=== PATIENT | female | born 1960 | race Caucasian/White ===

== ENCOUNTER 2023-10-31 10:40 | Emergency (ER) | payer OTHER ==
[~2023-10-31] VITALS: Ht 157.5 cm; Wt 72.6 kg
[2023-10-31 10:53] VITALS: BP 126/102; PULSE 99; RESP 18; TEMP 97.9; O2SAT 95
[2023-10-31] MEDS: KETOROLAC 30 MG/ML VIAL IM ONE (11:38)
[2023-10-31] MEDS ORDERED: NAPR-54 PO (11:54)
[2023-10-31 12:04] VITALS: BP 145/82; PULSE 81; RESP 18; TEMP 97.9; O2SAT 97
== END 2023-10-31 12:04 | disposition home or self-care (01) ==
LOC: MED 10:40
DX: G89.29 Other chronic pain (principal); M25.511 Pain in right shoulder; Z79.899 Other long term (current) drug therapy
CPT/HCPCS: 73030; 96372; 99283; J1885